=== PATIENT | male | born 1970 | race Caucasian/White ===

== ENCOUNTER 2022-01-02 11:51 | Inpatient (IN) | payer BC ==
[~2022-01-02] VITALS: Ht 177.8 cm; Wt 124.3 kg
[2022-01-02] VITALS (415 sets, daily range): BP systolic 133–200; BP diastolic 75–120; PULSE 83–113; TEMP 97.9–98; O2SAT 90–100
[2022-01-02 12:28] LABS: BASO % 0.5 % (0.0-2.0); EOS # 0.2 K/mm3 (0.0-0.7); EOS % 2.3 % (0.0-4.0); GRAN # 5.7 K/mm3 (1.4-6.5); GRAN % 72.8 % (42.2-75.2); HEMATOCRIT 42.2 % (42.0-52.0); HEMOGLOBIN 13.7 g/dl (13.5-18.0); LYMPH # 1.2 K/mm3 (1.2-3.4); LYMPH % 15.9 % (20.0-51.0); MEAN CELL VOLUME 90 fl (80.0-100.0); MEAN CORPUSCULAR HEMOGLOBIN 29 pg (27-31); MEAN CORPUSCULAR HGB CONC 33 g/dl (33.0-37.0); MEAN PLATELET VOLUME 10.6 fl (7.4-10.4); MONO # 0.6 K/mm3 (0.1-0.6); MONO % 8.1 % (1.7-9.3); PLATELET COUNT 226 K/mm3 (130-400); RED BLOOD COUNT 4.69 M/mm3 (4.20-5.60)
[2022-01-02 12:40] LABS: ALBUMIN 4.2 gm/dL (3.5-5.0); BILIRUBIN,TOTAL 0.6 mg/dL (0.2-1.2); C-REACTIVE PROTEIN 0.69 mg/dL (0.00-0.50); CALCIUM 9.4 mg/dL (8.4-10.2); CREATININE, serum 0.83 mg/dL (0.72-1.25); POTASSIUM 3.6 mmol/L (3.5-4.5); TOTAL PROTEIN 7.8 gm/dL (6.2-8.1)
[2022-01-02 12:46] LABS: TROPONIN-I 0.013 ng/mL (0.00-0.033)
[2022-01-02] MEDS ORDERED: TRIAMC 0.1 454 (14:44)
--- NOTE | 2022-01-02 15:56 | NUR ---
RECEIVED REPORT FROM ROYAL KIMBLE IN ER. AWAITING ARRIVAL OF PT TO ICU 6.
--- NOTE | 2022-01-02 16:20 | NUR ---
RECEIVED PT TO ICU 6. PT AMBULATES TO BED WITHOUT DIFFICULTIES. STEADY GAIT. USES THE URINAL THEN ABLE TO REPOSITION SELF IN BED. PT ON RA. PLACED ON BEDSIDE CONTINUOUS MONITOR. SEE IV GTT FLOWSHEET.
[2022-01-03] VITALS (1428 sets, daily range): BP systolic 165–189; BP diastolic 88–104; PULSE 81–113; TEMP 98–98.6; O2SAT 79–100
[2022-01-03 06:50] LABS: BILIRUBIN,TOTAL 0.9 mg/dL (0.2-1.2); CALCIUM 9.1 mg/dL (8.4-10.2); CHOLESTEROL RISK RATIO 4.6; CREATININE, serum 0.78 mg/dL (0.72-1.25); MAGNESIUM 2.2 mg/dL (1.6-2.6); POTASSIUM 3.5 mmol/L (3.5-4.5); TOTAL PROTEIN 7.4 gm/dL (6.2-8.1)
--- NOTE | 2022-01-03 10:09 | NUR ---
DC Cardene per Physician orders and increased PO ACEI.
--- NOTE | 2022-01-03 13:45 | NUR ---
stopped by but nothing needed at this time.
--- NOTE | 2022-01-03 15:36 | NUR ---
vessel slag worker met with patient to complete intake. Patient currently lives at home in [place]. He reports that he is fully independent with his ADL's and denies any DME need to assit with mobility. Patient has no home oxygen needs. He does not currently have a PCP but is interested in establishing one. Reviewed the different facilities in [place] and he states that he is familiar with [facility]. Informed him that we would help establish a PCP before discharge. Patient utilizes [facility] for medications. When asked if he had trouble affording his medications he replied with " not yet".Patient does not have a DPOA-HC established. He has never been and has no children. His parents are still living. His mother is Zayra Jackson ([phone]) and his father, who recently moved to [facility], [place] ([phone]).
[2022-01-04] VITALS (610 sets, daily range): BP systolic 169–207; BP diastolic 91–101; PULSE 72–85; TEMP 98.3–98.8; O2SAT 90–100
--- NOTE | 2022-01-04 07:00 | NUR ---
RECEIVED REPORT FROM ROYAL GREENE. PT RESTING IN BED ON RA. VSS. CALL LIGHT AND URINAL WITHIN REACH.
[2022-01-04] MEDS ORDERED: LIPITOR20 MG PO (09:38)
[2022-01-04] MEDS ORDERED: NORVASC 10MG10 MG PO (09:39)
[2022-01-04] MEDS ORDERED: ZESTRIL 20MG TA20 MG PO (09:39)
[2022-01-04] MEDS ORDERED: HCTZ 25MG TAB25 MG PO (09:40)
[2022-01-04] MEDS ORDERED: ATARAX 25MG25 MG/TAB PO (09:40)
[2022-01-04] MEDS ORDERED: CATAPRES 0.1MG0.1 MG PO (09:41)
== END 2022-01-04 10:35 | disposition home or self-care (01) | DRG 305 ==
LOC: COL.ER 11:51 → ICU 14:07
PROVIDERS: Nurse Practitioner; ADMIT Internal Medicine
DX: I16.1 Hypertensive emergency (principal); I10 Essential (primary) hypertension; L30.9 Dermatitis, unspecified; E78.5 Hyperlipidemia, unspecified
CPT/HCPCS: 99223-AI; 99232-AI; 99239; J7050